=== PATIENT | male | born 1980 | race Caucasian/White ===

== ENCOUNTER 2018-10-24 21:43 | Emergency (ER) | payer BC ==
[2018-10-24 21:49] VITALS: BP 133/68; BMI 20.4
[2018-10-24] MEDS ORDERED: SUMATRIPTAN SUC25 MG PO (21:51)
[2018-10-24] MEDS ORDERED: ZOLOFT25 MG PO (21:51)
[2018-10-24] MEDS ORDERED: VICTARVI (21:51)
[2018-10-24] MEDS ORDERED: SINGULAIR5 MG PO (21:51)
[2018-10-24] MEDS ORDERED: ZYRTEC10 MG PO (21:52)
[2018-10-24] MEDS ORDERED: AMBIEN10 MG PO (21:52)
[2018-10-24] MEDS ORDERED: FLUTICASONE PRO16 GM NASAL (21:52)
[2018-10-24] MEDS ORDERED: VALIUM5 MG PO (21:52)
[2018-10-24] MEDS ORDERED: VISTARIL25 MG PO (21:52)
== END 2018-10-24 22:41 | disposition left against medical advice (07) ==
LOC: D.ER 21:43
DX: R51 Headache (principal)